=== PATIENT | female | born 1965 | race Caucasian/White ===

== ENCOUNTER 2019-11-25 13:59 | Emergency (ER) | payer OTHER ==
[~2019-11-25] VITALS: Ht 177.8 cm; Wt 77.1 kg
[2019-11-25] MEDS ORDERED: LIDOCAINE 1% VIAL ONE (14:09)
[2019-11-25] MEDS ORDERED: ADACEL VIAL IM ONE ×2 (14:10→14:30)
[2019-11-25] MEDS ORDERED: TRIPLE ANTIBIOTIC OINTMENT TP ONE (14:10)
[2019-11-25 14:29] VITALS: BP 157/95
[2019-11-25 14:32] VITALS: BP 157/95
--- NOTE | 2019-11-25 15:23 | ER.PDOC ---
General Chief Complaint: Extremities Stated Complaint: L HAND INJURY Time seen by MD: 15:00 Source: patient Exam Limitations: no limitations History of Present Illness Occurred: just prior to arrival Where: home Severity: mild Context: laceration Location of Injury: (L) fingers Modifying Factors: pain on movement Past Medical History Medical History: no pertinent history Surgical History: no surgical history Social History Alcohol Use: none Drug Use: none Reviewed Nursing Reviewed: Vital Signs, Abn. Noted Review of Systems All Other Systems: Reviewed and Negative Physical Exam General Appearance: Alert, No Apparent Distress Hand: see diagram Wrist: nml inspection, non-tender, nml ROM 1 - lac 1 - lac Neuro: sensation nml, motor nml Vascular: no vascular compromise Tendons: tendon function nml Forearm/Elbow/Arm: uninjured above wrist Skin: warm/dry Head/ENT: nml inspection, pharynx nml Neck/Back: nml inspection, non-tender Resp/CVS: no resp distress, lungs clear, heart sounds nml, reg. rate & rhythm Abdomen: non-tender, no organomegaly ED LACERATION WOUND REPAIR Wound Length (cm): 1 Wound cleaned: betadine Anesthesia type: local Anesthesia: 1% Lidocaine Wound's Depth, Shape: superficial, linear Wound Explored: clean Suture Size/Type: 5:0, nylon Suture Style: simple Number of Sutures: 3 Results/Orders Results/Orders Orders - CHAUNCEY ORTIZ MD Diph,Pertuss(Acell),Tet Vac/Pf (Adacel V (11/25/19 14:30) Vital Signs Date Time Temp Pulse Resp B/P (MAP) Pulse Ox O2 Delivery O2 Flow Rate FiO2 11/25/19 14:32 97.4 64 18 157/95 (115) 97 Room Air 11/25/19 14:29 97.4 64 18 157/95 (115) 97 Room Air 11/25/19 14:29 97.4 64 18 11/25/19 14:29 97.4 64 18 97 Administered Medications Medications (Trade) Dose Ordered Sig/Sylvester Route PRN Reason Start Time Stop Time Status Last Admin Dose Admin Diphtheria/ Tetanus/Acell Pertussis (Adacel Vial) 0.5 ml ONCE ONCE IM 11/25/19 14:30 11/25/19 14:31 DC 11/25/19 14:58 0.5 ML ER DEPART Departure Time of Disposition: 15:22 Disposition: 01 HOME, SELF-CARE Impression: Primary Impression: Finger laceration Condition: Improved Patient Instructions: Tetanus and Diphtheria Vaccine, Laceration Care, Adult, [id number], Sutured Wound Care, [id number] Referrals: PCP,UNKNOWN (PCP) PRIMARY CARE PROVIDER Additional Instructions: IN THE ED EXAM, RX,TETANUS AND SUTURE PLACEMENT AT HOME CLEAN WOUND DAILY FOR SOAP AND WATER AND APPLY NEOSPORIN KEFLEX 500MG BYT MOUTH EVERY 6 HOURS #16 WATCH FOR SIGNS AND SYMPTOMS OF INFECTION SUTURE REMOVAL IN 7-10 DAYS RETURN NEEDED Duration or Time Spent with Pa: CHAUNCEY Hernandez MD Nov 25, 2019 15:23
== END 2019-11-25 15:01 | disposition home or self-care (01) ==
LOC: ER 13:59
DX: S61.412A Laceration without foreign body of left hand, initial encounter (principal); X58.XXXA Exposure to other specified factors, initial encounter; Y93.89 Activity, other specified; Y92.098 Other place in other non-institutional residence as the place of occurrence of the external cause; Y99.8 Other external cause status
CPT/HCPCS: 12001; 90471; 90715; 99283; J2001